=== PATIENT | female | born 1975 | race Two or more races ===

== ENCOUNTER 2021-05-10 07:41 | Emergency (ER) | payer BC ==
[~2021-05-10] VITALS: Ht 165.1 cm; Wt 93.0 kg
[2021-05-10 09:53] VITALS: BP 146/91
== END 2021-05-10 09:59 | disposition home or self-care (01) ==
LOC: ER 07:41
DX: M23.8X1 Other internal derangements of right knee (principal)
CPT/HCPCS: 73562

== ENCOUNTER 2022-12-22 20:24 | Emergency (ER) | payer BC ==
[~2022-12-22] VITALS: Ht 162.6 cm; Wt 110.8 kg
[2022-12-22 20:44] VITALS: BP 125/70
[2022-12-23] MEDS ORDERED: IBUP800T27 PO (16:45)
== END 2022-12-23 05:25 | disposition left against medical advice (07) ==
LOC: ER 20:24
DX: M25.572 Pain in left ankle and joints of left foot (principal); M25.472 Effusion, left ankle; Z53.21 Procedure and treatment not carried out due to patient leaving prior to being seen by health care provider
CPT/HCPCS: 73610

== ENCOUNTER 2022-12-23 14:31 | Emergency (ER) | payer BC ==
[~2022-12-23] VITALS: Ht 162.6 cm; Wt 109.2 kg
[2022-12-23 15:35] VITALS: BP 134/84
[2022-12-23] MEDS ORDERED: IBUP800T27 PO (16:45)
[2022-12-23] MEDS ORDERED: IBUPROFEN 800 MG TAB PO ONE (16:45)
== END 2022-12-23 16:54 | disposition home or self-care (01) ==
LOC: ER 14:31
DX: S82.65XA Nondisplaced fracture of lateral malleolus of left fibula, initial encounter for closed fracture (principal); Z88.6 Allergy status to analgesic agent; W18.39XA Other fall on same level, initial encounter; Y93.89 Activity, other specified; Y92.89 Other specified places as the place of occurrence of the external cause; Y99.8 Other external cause status
CPT/HCPCS: 29515